=== PATIENT | female | born 1990 | race Caucasian/White ===

== ENCOUNTER 2024-12-06 12:23 | Emergency (ER) | payer OTHER, SELFPAY ==
--- NOTE | ~2024-12-06 | XR_ITS ---
XR ankle RT min 3V Ordering provider: Shahzad Cavanaugh MD History: . pain . Comparison: None. FINDINGS: BONES: Undisplaced fracture in the lateral malleolus tip. JOINT SPACES: Normal. SOFT TISSUES: Soft tissue swelling over the lateral malleolus. IMPRESSION: Fracture lateral malleolus. Reviewed, dictated and finalized at location A. IMPRESSION: Fracture lateral malleolus.
[2024-12-06 12:32] VITALS: BP 154/108; PULSE 96; RESP 20; TEMP 36.3; O2SAT 98
[2024-12-06] MEDS: HYDROcodone/acetaminophen (*CRX) 5-325 MG TABLET 1 TAB PO (14:12)
--- OUTSIDE RECORDS SUMMARY | 2024-12-06 14:26 | XMS_ITS | Encounter Summary ---
Author Organization [facility] [place] Address [address] [address] Care Team Providers Care Final Dressing Cutter Name Role Phone Noa Bahena) Primary Care Provider + -[phone] Domo Monteiro) Unavailable + -[phone] Alexandra Aranda) Unavailable -[phone] Encounter Details Date Type Department Care Team (Late st Contact Info) Description 07/18/2023 Pharmacy Initiated Order GYNECOLOGY [address] [place] [address] Alexandra Aranda) [address] [place] [address] -[phone] (Work) Social History Tobacco Use Types Packs/Day Years Used Date Smoking Tobacco: Never Smokeless Tobacco: Never Alcohol Use Standard Drinks/Week Comments No 0 (1 standard drink = 0.6 oz pur e alcohol) Substance Use Types Use/Week Comments No Sex and Gender Information Value Date Recorded Sex Assigned at Not on file Gender Identity Not on file Sexual Orientation Not on file documented as of this encounter Plan of Treatment Upcoming Encounters Date Type Department Care Team (Late st Contact Info) Description 01/21/2025 5:30 PM PDT Video Visit - MH/BH PSYCHIATRY [address] [place] [address] Breanna Jolly) [address] [place] [address] -[phone] (Work) [phone] (Fax) documented as of this encounter Visit Diagnoses Not on filedocumented in this encounter Care Teams Final Dressing Cutter Relationship Specialty Start Date End Date Noa Bahena) [address] [place] [address] -[phone] (Work) [phone] (Fax) PCP - General 10/10/22 Alexandra Aranda) [address] [place] [phone] -[phone] (Work) PCP - JOINERS SUPERVISOR Physician 07/18/23 Domo Monteiro) [address] [place] [address] -[phone] (Work) Guitar Teacher 01/31/23 documented as of this encounter
--- OUTSIDE RECORDS SUMMARY | 2024-12-06 14:26 | XMS_ITS | Encounter Summary ---
Author Organization [facility] No [facility] [place] Address [address] [place] [address] Care Team Providers Care Automotive Service Technician Name Role Phone Layne Browne) Unavailable [phone] Noa Bahena) Primary Care Provider + -[phone] Domo Monteiro) Unavailable + -[phone] Alexandra Aranda) Unavailable -[phone] Encounter Details Date Type Department Care Team (Late st Contact Info) Description 03/25/2023 Pharmacy Initiated Order FAMILY MEDICINE [address] [place] [address] WHEEZING Social History Tobacco Use Types Packs/Day Years [...] 01/21/2025 5:30 PM PDT Video Visit - / PSYCHIATRY [address] [place] [address] Breanna Jolly) [address] [place] [phone] -[phone] (Work) [phone] (Fax) documented as of this encounter Visit Diagnoses Diagnosis WHEEZING documented in this encounter Care Teams Automotive Service Technician Relationship Specialty Start Date End Date Layne Browne) [address] [place] [address] -[phone] (Work) PCP - MESH CUTTER Physician 01/20/15 07/17/23 Noa Bahena) [address] [place] [address] -[phone] (Work) [phone] (Fax) PCP - General 10/10/22 Alexandra Aranda) [address] [place] [address] -[phone] (Work) PCP - MESH CUTTER Physician 07/18/23 Domo Monteiro) [address] [place] [address] -[phone] (Work) Head Setter 01/31/23 documented as of this encounter
--- OUTSIDE RECORDS SUMMARY | 2024-12-06 14:26 | XMS_ITS | Encounter Summary ---
Author Organization [facility] No [facility] [place] Address [address] [place] [address] Care Team Providers Care Physicist Solid Earth Name Role Phone Layne Browne) Unavailable [phone] Aishwarya Lewis) Primary Care Provider -[phone] Rene Taylor) Primary Care Provid er -[phone] Noa Bahena) Primary Care Provider + -[phone] Domo Monteiro) Unavailable + -[phone] Alexandra Aranda) Unavailable -[phone] Encounter Details Date Type Department Care Team (Late st Contact Info) Description 09/28/2022 Pharmacy Initiated Order ADMINISTRATION [address] [place] [address] Social History Tobacco Use Types Packs/Day Years [...] PM PDT Video Visit - MH/BH PSYCHIATRY [address] [place] [address] Breanna Jolly) [address] [place] [address] -[phone] (Work) [phone] (Fax) documented as of this encounter Visit Diagnoses Not on filedocumented in this encounter Care Teams Physicist Solid Earth Relationship Specialty Start Date End Date Layne Browne) [address] [place] [address] -[phone] (Work) PCP - ETL INFORMATICA DEVELOPER Physician 01/20/15 07/17/23 Aishwarya Lewis) [address] [place] [address] -[phone] (Work) [phone] (Fax) PCP - General 11/20/21 10/08/22 Rene Taylor) [address] [place] [address] -[phone] (Work) [phone] (Fax) PCP - General 10/09/22 10/09/22 Noa Bahena) [address] [place] [address] -[phone] (Work) [phone] (Fax) PCP - General 10/10/22 Alexandra Aranda) [address] [place] [address] -[phone] (Work) PCP - ETL INFORMATICA DEVELOPER Physician 07/18/23 Domo Monteiro) [address] [place] [phone] (Work) Ct Scan Technician 01/31/23 documented as of this encounter
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
--- OUTSIDE RECORDS SUMMARY | 2024-12-06 14:26 | XMS_ITS | Encounter Summary ---
Author Organization [facility] No [facility]thern [place] Address [address] [place] [address] Care Team Providers Care Gang Boss Name Role Phone Noa Bahena) Primary Care Provider + -[phone] Domo Monteiro) Unavailable + -[phone] Alexandra Danielle) Unavailable -[phone] Encounter Details Date Type Department Care Team (Late st Contact Info) Description 07/19/2023 Orders Only GYNECOLOGY [address] [place] [address] Alexandra Danielle) [address] [place] [address] -[phone] (Work) SCREENING FOR STI Social History Tobacco Use Types Packs/Day Years [...] on file documented as of this encounter Procedure Notes * Alexandra Danielle) - 08/02/2023 12:55 AM PSTAssociated Order(s): CERVICAL CANCER SCREENING RESULTS, [employer] RELEASE I'm pleased to inform you that your recent cervical cancer screening (Pap and HPV test) was normal.Unless instructed otherwise, your next cervical cancer screening tests will be due in 3 years. Please call my office or send me an email message on eventblimp if you have any questions or concerns beforeyour next exam. <a href= https://www..org/ncalpaphp target= _top > Clic aqu para mirar los resultados en espa ol</a> <a href= https://www..org/ncarturo/ target= _top > Click here to E- mail your doctor</a> documented in this encounter Plan of Treatment Upcoming Encounters Date Type Department Care Team (Late st Contact Info) Description 01/21/2025 5:30 PM PDT Video Visit - / PSYCHIATRY [address] [place] [address] Breanna Jolly) [address] [place] [address] -[phone] (Work) [phone] (Fax) documented as of this encounter Procedures Procedure Name Priority Date/Time Associated Diagnosis Comments HPV, HIGH RISK TYPES Routine 07/18/2023 2:12 PM PST SCREENING FOR STI CERVICAL CANCER SCREENING RESULTS, [facility] RELEASE 07/18/2023 2:12 PM PST [facility] CYTOLOGY 07/18/2023 2:12 PM PST documented in this encounter Results * CERVICAL CANCER SCREENING RESULTS, [facility] RELEASE (07/18/2023 2:12 PM PST) 07/18/2023 2:12 PM PST Narrative Procedure Note Alexandra Danielle) - 08/02/2023 12:55 AM PSTI'm pleased to inform you that your recent cervical cancer screening (Pap and HPV test) was normal. Unless instructed otherwise, your next cervical cancer screening tests will be due in 3 years. Please call my office or send me an email message on [email or web address] if you have any questions or concerns before your next exam. <a href= https://www..org/ncalpaphp target= _top > Clic aqu para mirar los resultados en espa ol</a> <a href= https://www..org/ncalemail/md target= _top > Click here to E- mail your doctor</a> Alexandra Newell) Rosi OTHER * C[facility] MOLDER CYTOLOGY (07/18/2023 2:12 PM PST) PATHOLOGY REPORT Provider: ALEXANDRA DANIELLE M.D. Collected: 07/18/2023 Case #: [id number] Gynecologic Cytology Report HPV Result: HPV16/18 NEGATIVE, [id number] NEGATIVE FINAL PATHOLOGIC DIAGNOSIS A: CERVICAL LIQUID-BASED PAP - NEGATIVE FOR INTRAEPITHELIAL LESION OR MALIGNANCY. ENDOCERVICAL/TRANS FORMATION ZONE COMPONENT PRESENT. SATISFACTORY FOR EVALUATION. SHEILA Garrett (ASCP) Report Electronically Signed by INTF Patient Postcard Notification Preference: Y Postcard Sent: Y Clinical History Specimen(s) Received A:CERVICAL LIQUID-BASED PAP Patient Name: IMELDA ROBERTSON [facility]. Rec #: [id number] /Age: 10 1990 (Age: 33) Sex: F Facility: [place] Location: [facility] Cytology [address] [place] [address] Yenni Walsh M.D., Electrical Helper [facility] Study recommendation N [facility] PAP SMEAR, LIQUID BASED, CERVICAL (PAP SMEAR, LIQUID BASED, CERVICAL) 07/18/2023 2:12 PM PST 07/25/2023 11:41 PM PST Alexandra Newell) Rosi PATHOL OGY/CYTOLOGY Performing Organization Address [facility] Co de Phone Number [facility] [address] [place] [address] * HPV, HIGH RISK TYPES (07/18/2023 2:12 PM PST) Specimen source Cervical [facility] HPV 16/18 DNA, PCR NEGATIVE NEGATIVE [facility] HPV 12-OTHER DNA, PCR NEGATIVE NEGATIVE [facility] HPV DNA INTERPRETATION, PCR SEE NOTE [facility] Comment: This is a normal HPV result. Further testing is already in progress, which will take a few weeks. You will be notified automatically if this testing is also normal. If not, your clinician will contact you with further advice about your care. HPV DNA type 16, 18, 31, 33, 35, 39, 45, 51, 52, 56, 58, 59, 66 and 68 were undetectable. HPV SPECIMEN REFLEXED FOR CYTOLOGY TESTING SEE CYTOLOGY [facility] 07/18/2023 2:12 PM PST 07/24/2023 12:03 PM PST Alexandra Newell) Rosi MICRO - [facility] ONLY Performing Organization Address City/[facility] Co de Phone Number [place] [address] [place] [address] documented in this encounter Visit Diagnoses Diagnosis SCREENING FOR STI STD SCREENING documented in this encounter Care Teams Gang Boss Relationship Specialty Start Date End Date Noa Bahena) [address] [place] [phone] -[phone] (Work) [phone] (Fax) PCP - General 10/10/22 Alexandra Danielle) [address] [place] [phone] -[phone] (Work) PCP - MEDICAL RECEPTIONIST Physician 07/18/23 Domo Monteiro) [address] [place] [phone] (Work) Data Coder Operator 01/31/23 documented as of this encounter
--- OUTSIDE RECORDS SUMMARY | 2024-12-06 14:26 | XMS_ITS | Encounter Summary ---
Author Organization [facility] No [facility]thern [place] Address [address] [place] [address] Care Team Providers Care Reservations Agent Name Role Phone Layne Browne) Unavailable [phone] Aishwarya Lewis) Primary Care Provider -[phone] Rene Taylor) Primary Care Provid er -[phone] Noa Bahena) Primary Care Provider + -[phone] Domo Monteiro) Unavailable + -[phone] Alexandra Aranda) Unavailable -[phone] Encounter Details Date Type Department Care Team (Latest Contact Info) Description 12/16/2021 Pharmacy Initiated Order FAMILY MEDICINE [address] [place] [address] MAJOR DEPRESSIVE DISORDER, SINGLE EPISODE, MODERATE Social History Tobacco Use Types Packs/Day Years [...] PDT Video Visit - MH/BH PSYCHIATRY [address] [place] [address] Breanna Jolly) [address] [place] [address] -[phone] (Work) [phone] (Fax) documented as of this encounter Visit Diagnoses Diagnosis MAJOR DEPRESSIVE DISORDER, SINGLE EPISODE, MODERATE MAJOR DEPRESSION, SINGLE EPISODE, MODERATE documented in this encounter Care Teams Reservations Agent Relationship Specialty Start Date End Date Layne Browne) [address] [place] [phone] -[phone] (Work) PCP - CROP PRODUCTION ADVISOR Physician 01/20/15 07/17/23 Aishwarya Lewis) [address] [place] [address] -[phone] (Work) [phone] (Fax) PCP - General 11/20/21 10/08/22 Rene Taylor) [address] [place] [phone] -[phone] (Work) [phone] (Fax) PCP - General 10/09/22 10/09/22 Noa Bahena) [address] [place] [phone] -[phone] (Work) [phone] (Fax) PCP - General 10/10/22 Alexandra Aranda) [address] [place] [phone] (Work) PCP - CROP PRODUCTION ADVISOR Physician 07/18/23 Domo Monteiro) [address] [place] [phone] (Work) Manager Of Corporate 01/31/23 documented as of this encounter
--- OUTSIDE RECORDS SUMMARY | 2024-12-06 14:26 | XMS_ITS | Encounter Summary ---
Author Organization [facility] No [place] [place] Address [address] [place] [address] Care Team Providers Care Cranberry Grower Name Role Phone Noa Bahena) Primary Care Provider + -[phone] oDmo Monteiro) Unavailable + -[phone] Alexandra Aranda) Unavailable -[phone] Encounter Details Date Type Department Care Team (Late st Contact Info) Description 07/18/2023 Orders Only GYNECOLOGY [address] [place] [address] Alexandra Aranda) [address] [place] [address] -[phone] (Work) FEMALE PELVIC PAIN; SCREENING FOR STI; ROUTINE FIRE TECHNICIAN EXAM; SCREENING FOR CERVICAL CANCER Social History Tobacco Use Types Packs/Day Years [...] 01/21/2025 5:30 PM PDT Video Visit - MH/ PSYCHIATRY [address] [place] [address] Breanna Jolly) [address] [place] [address] -[phone] (Work) [phone] (Fax) documented as of this encounter Procedures Procedure Name Priority Date/Time Associated Diagnosis Comments TRICHOMONAS VAGINALIS RNA, AMPLIFIED PROBE Routine 07/18/2023 2:14 PM PST SCREENING FOR STI CHLAMYDIA + GC, SWAB, ZOLTAN Routine 07/18/2023 2:14 PM PST ROUTINE FIRE TECHNICIAN EXAM SCREENING FOR CERVICAL CANCER URINE CULTURE Routine 07/18/2023 2:00 PM PST FEMALE PELVIC PAIN documented in this encounter Results * CHLAMYDIA + GC, SWAB, AMPLIFIED PROBE (07/18/2023 2:14 PM PST) Specimen source CERVIX [facility] [place] [place] Chlamydia RNA, amplified probe NEGATIVE NEGATIVE [facility] [place] Neisseria gonorrhoeae rRNA, TMA NEGATIVE NEGATIVE [facility] [place] [place] Comment: This test has not been cleared or approved by the US Food and Drug Administration for rectal swab or throat swab specimens. The performance characteristics of this test were determined by [facility]. CERVIX UTERI STRUCTURE / Unknown 07/18/2023 2:14 PM PST 07/19/2023 1:31 AM PST Alexadnra Newell) Rosi [facility] ONLY [facility] [place] [place] [address] [place] [address] [facility] [place], [facility] [place] [address] [place] [address] * TRICHOMONAS VAGINALIS RNA, AMPLIFIED PROBE (07/18/2023 2:14 PM PST) Specimen source Vaginal [facility] MEDIA TYPE Unisex Swab [facility] TRICHOMONAS VAGINALIS RRNA Negative Negative [facility] Comment: This test was developed and its performance characteristics determined by [facility]. It has not been cleared or approved by the U.S. Food and Drug Administration. This test was performed in a CLIA-certified laboratory and is intended for clinical purposes. Interpretive Information: Trichomonas vaginalis by TMA A negative result does not completely rule out infection with T. vaginalis. Results should be interpreted in conjunction with other clinical data. This test has not been validated for use with self-collected vaginal swab specimens from patients. This test is intended for medical purposes only and is not valid for the evaluation of suspected sexual abuse or for other forensic purposes. Performed By: [address] [address] [employer] Developer: Willam Perez MD, PhD CLIA Number: [id number] 07/18/2023 2:14 PM PST 07/18/2023 4:22 PM PST Alexandra Aranda MICRO - [facility] ONLY Performing Organization Address City/[facility]/ZIP Co de Phone Number [address] [address] * URINE CULTURE (07/18/2023 2:00 PM PST) Pathologist [facility] Urine culture result Final Report Mixed william isolated. Probable contaminati on/coloniza tion. [facility] URINE, CLEAN CATCH 07/18/2023 2:00 PM PST 07/18/2023 9:13 PM PST Alexandra Aranda MICROB IOLOGY Performing Organization Address City/[facility]/ZIP Co de Phone Number [facility] [address] [place] [address] documented in this encounter Visit Diagnoses Diagnosis FEMALE PELVIC PAIN PELVIC PAIN, FEMALE SCREENING FOR STI STD SCREENING ROUTINE FIRE TECHNICIAN EXAM EXAM, ROUTINE FIRE TECHNICIAN VISIT SCREENING FOR CERVICAL CANCER SCREENING FOR CA, CERVIX documented in this encounter Care Teams Cranberry Grower Relationship Specialty Start Date End Date Noa Bahena.) [address] [place] [phone] -[phone] (Work) [phone] (Fax) PCP - General 10/10/22 Alexandra Aranda) [address] [place] [phone] -[phone] (Work) PCP - HEALTH SPA MANAGER Physician 07/18/23 Domo Monteiro) [address] [place] [phone] (Work) Information Technology Analyst 01/31/23 documented as of this encounter
--- OUTSIDE RECORDS SUMMARY | 2024-12-06 14:26 | XMS_ITS | Encounter Summary ---
Author Organization [facility] No [facility]n [place] Address [address] [place] [address] Care Team Providers Care Airfield Manager Name Role Phone Noa Bahena) Primary Care Provider + -[phone] Domo Monteiro) Unavailable + -[phone] Alexandra Aranda) Unavailable -[phone] Reason for Visit * Reason Comments MEDICATION REQUEST Encounter Details Date Type Department Care Team (Latest Contact Info) Description 09/08/2024 TELEPHONE - / 2 PSYCHIATRY [address] [place] [address] Fiordaliza Kinsey (M.A.) [address] [place] [address] GENERALIZED ANXIETY DISORDER Social History Tobacco Use Types Packs/Day Years [...] PDT Video Visit - / PSYCHIATRY [address] [place] [address] Breanna Jolly) [address] [place] [phone] -[phone] (Work) [phone] (Fax) documented as of this encounter Visit Diagnoses Diagnosis GENERALIZED ANXIETY DISORDER documented in this encounter Care Teams Airfield Manager Relationship Specialty Start Date End Date Noa Bahena) [address] [place] [phone] -[phone] (Work) [phone] (Fax) PCP - General 10/10/22 Alexandra Aranda) [address] [place] [phone] -[phone] (Work) PCP - TWILL CUTTER Physician 07/18/23 Domo Monteiro) [address] [place] [phone] (Work) Automotive Metalsmith 01/31/23 documented as of this encounter
--- OUTSIDE RECORDS SUMMARY | 2024-12-06 14:26 | XMS_ITS | Encounter Summary ---
Author Organization [facility] No [facility]n [place] Address [address] [place] [address] Care Team Providers Care Hospital Product Specialist Name Role Phone Layne Browne) Unavailable [phone] Shivam Brasher) Primary Care Provid er -[phone] Jailene Richardson) Primary Care Provider + [phone] Aishwarya Lewis) Primary Care Provider -[phone] Rene Taylor) Primary Care Provid er -[phone] Noa Bahena) Primary Care Provider + -[phone] Domo Monteiro) Unavailable + -[phone] Alexandra Aranda) Unavailable -[phone] Encounter Details Date Type Department Care Team (Latest Contact Info) Description 04/21/2020 Pharmacy Initiated Order CCM-ASTHMA [address] [place] [address] MODERATE PERSISTENT ASTHMA Social History Tobacco Use Types Packs/Day Years [...] PM PDT Video Visit - / PSYCHIATRY [address] [place] [address] Breanna Jolly) [address] [place] [address] -[phone] (Work) [phone] (Fax) documented as of this encounter Visit Diagnoses Diagnosis MODERATE PERSISTENT ASTHMA documented in this encounter Care Teams Hospital Product Specialist Relationship Specialty Start Date End Date Layne Browne) [address] [place] [address] -[phone] (Work) PCP - DIRECTOR DECISION SUPPORT Physician 01/20/15 07/17/23 Shivam Brasher) [address] [place] [address] -[phone] (Work) PCP - General 02/12/20 04/27/21 Jailene Richardson) [address] [place] [address] -[phone] (Work) PCP - General 04/28/21 11/19/21 Aishwarya Lewis) [address] [place] [address] -[phone] (Work) [phone] (Fax) PCP - General 11/20/21 10/08/22 Rene Taylor) [address] [place] [address] -[phone] (Work) [phone] (Fax) PCP - General 10/09/22 10/09/22 Noa Bahena) [address] [place] [phone] -[phone] (Work) [phone] (Fax) PCP - General 10/10/22 Alexandra Aranda) [address] [place] [address] -[phone] (Work) PCP - DIRECTOR DECISION SUPPORT Physician 07/18/23 Domo Monteiro) [address] [place] [phone] -[phone] (Work) Brand Sales Consultant 01/31/23 documented as of this encounter
--- OUTSIDE RECORDS SUMMARY | 2024-12-06 14:26 | XMS_ITS | Encounter Summary ---
Author Organization [facility] No [facility]thern [place] Address [address] [place] [address] Care Team Providers Care Sql Dba Name Role Phone Layne Browne) Unavailable [phone] Shivam Brasher) Primary Care Provid er -[phone] Jailene Richardson) Primary Care Provider [phone] Aishwarya Lewis) Primary Care Provider -[phone] Rene Taylor) Primary Care Provid er -[phone] Noa Bahena) Primary Care Provider + -[phone] Domo Monteiro) Unavailable + -[phone] Alexandra Aranda) Unavailable -[phone] Encounter Details Date Type Department Care Team (Late st Contact Info) Description 09/28/2020 Orders Only DEFAULT SECURE MESSAGE DEPT [address] [place] [id number] Suellen Jimenez) [address] [place] [address] Social History Tobacco Use Types Packs/Day Years [...] PDT Video Visit - MH/ PSYCHIATRY [address] [place] [address] Breanna Jolly) [address] [place] [address] -[phone] (Work) [phone] (Fax) documented as of this encounter Procedures Procedure Name Priority Date/Time Associated Diagnosis Comments SARS-COV-2, ZOLTAN (COVID-19), HEALTHCARE WORKER Routine 09/28/2020 11:55 AM PST documented in this encounter Results * SARS-COV-2, ZOLTAN (COVID-19), HEALTHCARE WORKER (09/28/2020 11:55 AM PST) Specimen source RADIO STATION MANAGER/OP [facility] SARS-COV-2 (COVID-19) PANEL, ZOLTAN COVID NOT DETECTED [facility] Comment:Nasopharynx/Orophary nx source. 09/28/2020 11:5 5 AM PST 09/29/2020 1:05 AM PST Secure Message Provider [place] [facility] [address] [place] [address] documented in this encounter Visit Diagnoses Not on filedocumented in this encounter Care Teams Sql Dba Relationship Specialty Start Date End Date Layne Browne) [facility] [place] [address] -[phone] (Work) PCP - DIRECTOR VOICE Physician 01/20/15 07/17/23 Shivam Brasher) [address] [place] [address] -[phone] (Work) PCP - General 02/12/20 04/27/21 Jailene Richardson) [address] [place] [address] -[phone] (Work) PCP - General 04/28/21 11/19/21 Aishwarya Lewis) [address] [place] [address] -[phone] (Work) [phone] (Fax) PCP - General 11/20/21 10/08/22 Rene Taylor) [address] [place] [phone] -[phone] (Work) [phone] (Fax) PCP - General 10/09/22 10/09/22 Noa Bahena) [address] [place] [phone] -[phone] (Work) [phone] (Fax) PCP - General 10/10/22 Alexandra Aranda) [address] [place] [phone] -[phone] (Work) PCP - DIRECTOR VOICE Physician 07/18/23 Domo Monteiro) [address] [place] [phone] (Work) Commissary Agent 01/31/23 documented as of this encounter
--- NOTE | 2024-12-06 14:36 | ED.LOWEXIN ---
HPI - Extremity Injury (Lower) General Chief Complaint: Extremity Injury, Lower Stated Complaint: R. ankle injury Time Seen by Provider: 12/06/24 13:49 History of Present Illness HPI Narrative: Patient is a 34-year-old female who presents ER after a trip and fall. She was walking when she rolled her ankle and felt a snap in her ankle. Unable to bear weight. No numbness or tingling. No head injury. Related Data Allergies Allergy/AdvReac Type Severity Reaction Status Date / Time amoxicillin Allergy Intermediate Rash Verified 12/06/24 12:25 Review of Systems Constitutional: Constitutional: Reports no additional constitutional complaints Musculoskeletal: Musculoskeletal: Reports no additional musculoskeletal complaints Neurologic: Reports system reviewed and no additional complaints, except as documented PMFSH Past Medical History Medical History (Updated 12/06/24 @ 14:43 by Jerson Polanco MD) Healthy female adult Surgical History Surgical History (Updated 12/06/24 @ 14:37 by Jerson Polanco MD) No pertinent past surgical history Exam Narrative: GENERAL: Well-appearing, well-nourished, and in no acute distress. HEAD: Normocephalic, atraumatic. ENT: Mucous membranes moist. CHEST: Clear to auscultation. No respiratory distress. HEART: Regular rate and rhythm. Normal peripheral pulses. EXTREMITIES: Tender palpation over the lateral malleolus of the right ankle with bruising and swelling. Decreased range of motion of the right ankle did pain. SKIN: Warm, dry, no rash. NEURO: Alert and oriented x3. PSYCH: Normal mood and affect. Course Course Emergency Course: Ankle splinted. Crutch training provided. July for pain here. Patient is supposed to fly to [place] where she lives. Recommend aspirin for the trip. Vital Signs Vital signs: Vital Signs Temperature 97.4 F L 12/06/24 12:32 Pulse Rate 96 12/06/24 12:32 Respiratory Rate 20 12/06/24 12:32 Blood Pressure 154/108 H 12/06/24 12:32 Pulse Oximetry 98 12/06/24 12:32 Temperature 97.4 F L 12/06/24 12:32 Pulse Rate 96 12/06/24 12:32 Respiratory Rate 20 12/06/24 12:32 Blood Pressure 154/108 H 12/06/24 12:32 Pulse Oximetry 98 12/06/24 12:32 MDM - Extremity Injury (Lower) Imaging Data Radiologist's impression: ITS Impressions Ankle X-Ray 12/06/24 13:57 IMPRESSION: Fracture lateral malleolus. Discharge Plan Discharge Clinical Impression: Lateral malleolar fracture Patient Disposition: Home, Self-Care Condition: Stable Instructions: Ankle Fracture (ED) Additional Instructions: Return ER if you suffered a new injury, you develop chest pain or shortness of breath, have additional concerns. Take an aspirin while your traveling to help prevent blood clot formation. Patient Language: Faroese Prescriptions: New hydrocodone-acetaminophen 5-325 mg tablet 1 tablet PO Q6H PRN (Reason: pain) Qty: 20 0RF Follow-up/Referrals: PHYSICIAN NOT ON STAFF,NONSTAFF [Primary Care Provider] - Min Browne MD [Physician] - 1 Week
[2024-12-06 15:24] VITALS: BP 142/94; PULSE 82; RESP 16; O2SAT 99
== END 2024-12-06 15:35 | disposition home or self-care (01) ==
PROVIDERS: Emergency Provider Emergency Medicine
DX: S82.61XA Displaced fracture of lateral malleolus of right fibula, initial encounter for closed fracture (principal); W01.0XXA Fall on same level from slipping, tripping and stumbling without subsequent striking against object, initial encounter; X50.9XXA Other and unspecified overexertion or strenuous movements or postures, initial encounter
CPT/HCPCS: 29515; 73610; 99284; A9270